=== PATIENT | male | born 1970 | race African-American/Black ===

== ENCOUNTER 2019-10-09 09:56 | Day surgery (SDC) | payer BC ==
[2019-10-07 15:03] VITALS: BMI 26.6
[2019-10-09] MEDS ORDERED: LIDOCAINE HCL/PF 1% SDV 5ML VIAL ONE ×2 (13:20→13:22)
[2019-10-09] MEDS ORDERED: LIDOCAINE 1% P/F 10 MG/ML VIAL INF ONE ×3 (13:34)
[2019-10-09] MEDS ORDERED: DEXAMETHASONE SOD PHOSPHATE 10 MG/1 ML VIAL IVPUSH ONE (13:34)
[2019-10-09] MEDS ORDERED: LIDOCAINE HCL 1%, 10 MG/ML (20ML VIAL) INF ONE (13:35)
[2019-10-09] MEDS ORDERED: IOHEXOL 180 MG/1 ML ML IJ ONE ×2 (13:35)
[2019-10-09 13:57] VITALS: TEMP 98.4
[2019-10-09 14:30] VITALS: BP 149/86; PULSE 66
== END 2019-10-09 14:30 | disposition home or self-care (01) ==
LOC: JASU-SURG 09:56
PROVIDERS: ATTEND Pain Medicine Pain Medicine
PROC: 3E0R3BZ Introduction of Anesthetic Agent into Spinal Canal, Percutaneous Approach (ICD-10-PCS; 2019-10-09)
PROC: B01BYZZ Fluoroscopy of Spinal Cord using Other Contrast (ICD-10-PCS; 2019-10-09)
PROC: 3E0R33Z Introduction of Anti-inflammatory into Spinal Canal, Percutaneous Approach (ICD-10-PCS; principal; 2019-10-09 12:00)
DX: M54.16 Radiculopathy, lumbar region (principal); M54.5 Low back pain
CPT/HCPCS: J1100

== ENCOUNTER 2020-08-19 05:30 | Day surgery (SDC) | payer BC ==
[2020-08-18 12:48] VITALS: BMI 26.4
[~2020-08-19 05:30] MED LIST: DEXAMETHASONE SOD PHOSPHATE 10 MG/1 ML VIAL IVPUSH ONE; IOHEXOL 180 MG/1 ML ML IJ ONE; LIDOCAINE HCL 1% PRESERVATIVE FREE - 30ML VIAL IJ ONE
[2020-08-19] MEDS ORDERED: LIDOCAINE HCL/PF 2% SDV 5ML VIAL ONE (07:33)
[2020-08-19] MEDS ORDERED: LIDOCAINE HCL/PF 1% SDV 5ML VIAL ONE (07:33)
[2020-08-19] MEDS ORDERED: DEXAMETHASONE SOD PHOSPHATE 10 MG/1 ML VIAL IVPUSH ONE (14:30)
[2020-08-19] MEDS ORDERED: LIDOCAINE HCL 1% PRESERVATIVE FREE - 30ML VIAL IJ ONE (14:30)
[2020-08-19] MEDS ORDERED: IOHEXOL 180 MG/1 ML ML IJ ONE (14:30)
[2020-08-19 14:51] VITALS: TEMP 97.7
[2020-08-19 15:24] VITALS: BP 129/71; PULSE 77
== END 2020-08-19 15:15 | disposition home or self-care (01) ==
LOC: JASU-SURG 05:30
PROVIDERS: ATTEND Pain Medicine Pain Medicine
PROC: 3E0R3BZ Introduction of Anesthetic Agent into Spinal Canal, Percutaneous Approach (ICD-10-PCS; 2020-08-19)
PROC: B01BYZZ Fluoroscopy of Spinal Cord using Other Contrast (ICD-10-PCS; 2020-08-19)
PROC: 3E0R33Z Introduction of Anti-inflammatory into Spinal Canal, Percutaneous Approach (ICD-10-PCS; principal; 2020-08-19 15:30)
DX: M48.061 Spinal stenosis, lumbar region without neurogenic claudication (principal); M54.16 Radiculopathy, lumbar region
CPT/HCPCS: 76000-TC-FY; J1100

== ENCOUNTER 2020-11-11 04:21 | Day surgery (SDC) | payer BC ==
[2020-11-08 12:35] VITALS: BMI 26.6
[2020-11-11] MEDS ORDERED: LIDOCAINE 1% P/F 10 MG/ML VIAL PNB ONE (14:58)
[2020-11-11] MEDS ORDERED: DEXAMETHASONE 0.5 MG TABLET NR ONE (14:58)
[2020-11-11 15:34] VITALS: BP 128/75; PULSE 65; TEMP 97.3
== END 2020-11-11 16:10 | disposition home or self-care (01) ==
LOC: JASU-SURG 04:21
PROVIDERS: ATTEND Pain Medicine Pain Medicine
PROC: 3E0R33Z Introduction of Anti-inflammatory into Spinal Canal, Percutaneous Approach (ICD-10-PCS; 2020-11-11)
PROC: B01BYZZ Fluoroscopy of Spinal Cord using Other Contrast (ICD-10-PCS; 2020-11-11)
PROC: 3E0R3BZ Introduction of Anesthetic Agent into Spinal Canal, Percutaneous Approach (ICD-10-PCS; principal; 2020-11-11 15:00)
DX: M54.16 Radiculopathy, lumbar region (principal)
CPT/HCPCS: 76000-TC-FY; J8540